=== PATIENT | female | born 1985 | race Caucasian/White ===

== ENCOUNTER 2021-07-18 17:34 | Emergency (ER) | payer SELFPAY ==
--- NOTE | ~2021-07-18 | XR_ITS ---
EXAMINATION: XR foot LT min 3V DATE: 07/18/2021 18:37 INDICATION: Left foot pain. TECHNIQUE: 3 views of left foot were obtained. COMPARISON: None. FINDINGS: There is moderate hallux valgus. There is a transverse fracture of diaphysis of second meta tarsal. The distal fracture fragment demonstrates 12 degrees dorsal angulation. Callus formation is n oted with persistent lucent line through the callus. There is an enthesophyte at posterior aspect of calcaneal tuberosity. IMPRESSION: 1. Healing transverse fracture of diaphysis of second metatarsal. Reviewed, dictated and finalized at location [facility]
[2021-07-18 17:37] VITALS: BP 194/115; PULSE 124; RESP 18; TEMP 36.8; O2SAT 99
--- NOTE | 2021-07-18 18:28 | ED.GENADULT ---
HPI - General Adult General Chief complaint: Extremity Injury, Lower Stated complaint: left foot pain Time Seen by Provider: 07/18/21 18:11 Source: patient History of Present Illness HPI narrative: Patient is a 35 y/o female complaining of left foot pain after sliding on ice 2 days ago. She states that she bent her toes, but did not fall. She rates on her as 2/10. She describes her pain as sharp. Weight bearing worsens her pain. Related Data Allergies Allergy/AdvReac Type Severity Reaction Status Date / Time No Known Allergies Allergy Unverified 07/18/21 18:10 Review of Systems Respiratory: Respiratory: Denies cough and Denies dyspnea Gastrointestinal: Gastrointestinal: Denies abdominal pain, Denies diarrhea, Denies nausea and Denies vomiting Musculoskeletal: Musculoskeletal: Reports as per HPI, Denies back pain, Denies neck pain and Reports other (left foot pain) Exam Const: General: no acute distress and well developed Orientation/consciousness: oriented to person, oriented to place, oriented to time and patient oriented x3 Cardio: Rate: tachycardic Rhythm: regular rhythm Skin: General skin exam: normal color, turgor normal and no ecchymosis Extrem: General: normal to inspection and full ROM Left lower extremity: foot Details: tenderness; no lacerations Psych: Appearance: grossly normal Mental Status: mental status grossly normal Affect: normal affect Course Reevaluation(s) Reevaluation #1: Informed patient that her BP is high and instructed her to follow up with PCP for further evaluation. Date: 07/18/21 Vital Signs Vital signs: Vital Signs Temperature 36.8 C 07/18/21 17:37 Pulse Rate 124 H 07/18/21 17:37 Respiratory Rate 18 07/18/21 17:37 Blood Pressure 194/115 H 07/18/21 17:37 Pulse Oximetry 99 07/18/21 17:37 Temperature 36.8 C 07/18/21 17:37 Pulse Rate 70 07/18/21 20:53 Respiratory Rate 18 07/18/21 20:53 Blood Pressure 173/97 H 07/18/21 20:53 Pulse Oximetry 99 07/18/21 20:53 Medical Decision Making Vital Signs Vital Signs: Vital Signs Temperature 36.8 C 07/18/21 17:37 Pulse Rate 124 H 07/18/21 17:37 Respiratory Rate 18 07/18/21 17:37 Blood Pressure 194/115 H 07/18/21 17:37 Pulse Oximetry 99 07/18/21 17:37 Temperature 36.8 C 07/18/21 17:37 Pulse Rate 70 07/18/21 20:53 Respiratory Rate 18 07/18/21 20:53 Blood Pressure 173/97 H 07/18/21 20:53 Pulse Oximetry 99 07/18/21 20:53 Discharge Plan Discharge Clinical Impression: Foot fracture, left Qualifiers: Encounter type: initial encounter Fracture type: closed Qualified Code(s): S92.902A - Unspecified fracture of left foot, initial encounter for closed fracture Hypertension Qualifiers: Hypertension type: unspecified Qualified Code(s): I10 - Essential (primary) hypertension Patient Disposition: Home, Self-Care Condition: Stable Instructions: Foot Fracture in Adults (ED), Hypertension (ED) Prescriptions: New amlodipine [Norvasc] 5 mg tablet 5 mg PO DAILY Qty: 30 RF: 0 Follow-up/Referrals: PHYSICIAN,TRANSCRIBING OPERATOR HEAD [Primary Care Provider] - Christo Mac MD [Physician] - 1 Week Adeline Espinosa DO [Physician] - 1 Week
[2021-07-18 20:11] VITALS: BP 164/114; PULSE 107; O2SAT 100
[2021-07-18 20:53] VITALS: BP 173/97; PULSE 70; RESP 18; O2SAT 99
== END 2021-07-18 20:55 | disposition home or self-care (01) ==
PROVIDERS: Emergency Provider Emergency Medicine
DX: S92.322A Displaced fracture of second metatarsal bone, left foot, initial encounter for closed fracture (principal); I10 Essential (primary) hypertension; W18.40XA Slipping, tripping and stumbling without falling, unspecified, initial encounter
CPT/HCPCS: 73630; 99284